=== PATIENT | female | born 1970 | race Two or more races ===

== ENCOUNTER 2023-03-01 16:41 | Emergency (ER) | payer OTHER ==
[2023-03-01 17:07] VITALS: BP 110/81; PULSE 107; RESP 16; TEMP 98.1; BMI 22.3
[2023-03-01 17:54] LABS: BASO % 1.1 % (0-2.0); HEMATOCRIT 41.5 % (32.4-45.2); HEMOGLOBIN 14.2 GM/dL (10.7-15.3); LYMPH % 27.5 % (8-40); MCH 33.9 pg (25.7-33.7); MCHC 34.3 g/dl (32.0-36.0); MEAN CELL VOLUME 98.8 fl (80-96); MEAN PLT VOLUME 7.8 fl (7.5-11.1); MONO % 7.3 % (3.8-10.2); NEUT % 55.1 % (42.8-82.8); PLATELET COUNT 316 10^3/uL (134-434); RDW 14.5 % (11.6-15.6); WHITE BLOOD COUNT 6.9 K/mm3 (4.0-10.0)
[2023-03-01 17:58] LABS: URINE APPEARANCE CLEAR; URINE BILIRUBIN NEGATIVE (NEGATIVE); URINE COLOR YELLOW; URINE GLUCOSE (UA) NEGATIVE (NEGATIVE); URINE KETONE NEGATIVE (NEGATIVE); URINE LEUK ESTERASE NEGATIVE (NEGATIVE); URINE NITRITE NEGATIVE (NEGATIVE); URINE PROTEIN NEGATIVE (NEGATIVE); URINE UROBILINOGEN 0.2 mg/dL (0.2-1.0)
[2023-03-01] MEDS ORDERED: levETIRAcetam 500 MG TABLET (FP) PO ONE ×2 (19:00→19:19)
[2023-03-01 20:18] LABS: POTASSIUM 4.2 mmol/L (3.5-5.1)
[2023-03-01 20:20] LABS: ALBUMIN 3.8 g/dl (3.4-5.0); CALCIUM 8.8 mg/dL (8.5-10.1)
[2023-03-01 20:21] LABS: BLOOD UREA NITROGEN 10.8 mg/dL (7-18)
[2023-03-01 20:24] LABS: CREATININE 0.7 mg/dL (0.55-1.3)
[2023-03-01 20:25] LABS: BILIRUBIN,TOTAL 0.5 mg/dL (0.2-1)
[2023-03-02 11:00] LABS: METHADONE, UR NEGATIVE (NEGATIVE); OPIATES, URI NEGATIVE (NEGATIVE); PHENCYCLIDINE,URINE NEGATIVE (NEGATIVE); URINE AMPHETAMINES NEGATIVE (NEGATIVE); URINE BARBITURATES NEGATIVE (NEGATIVE)
[2023-03-02 11:38] LABS: COCAINE, UR POSITIVE (NEGATIVE); URINE BENZODIAZEPINES POSITIVE (NEGATIVE)
== END 2023-03-01 21:39 | disposition home or self-care (01) ==
LOC: JER 16:41
DX: G40.909 Epilepsy, unspecified, not intractable, without status epilepticus (principal); F10.239 Alcohol dependence with withdrawal, unspecified; Y90.9 Presence of alcohol in blood, level not specified
CPT/HCPCS: 36415; 70450-TC; 72125-TC; 80053; 80177; 80307; 81003; 84703; 85025; 87086; 99284-25